=== PATIENT | female | born 1995 | race Caucasian/White ===

== ENCOUNTER 2017-12-25 10:32 | Emergency (ER) | payer SELFPAY ==
[2017-12-25 12:34] LABS: URINE BLOOD (Dip) POC Negative (NEGATIVE); URINE GLUCOSE (Dip) POC Negative (NEGATIVE); URINE KETONES (Dip) POC 2+ (NEGATIVE); URINE LEUKOCYTE EST (Dip) POC Trace (NEGATIVE); URINE NITRITE (Dip) POC Negative (NEGATIVE); URINE TOTAL PROTEIN POC 1+ (NEGATIVE)
== END 2017-12-25 13:31 | disposition home or self-care (01) ==
LOC: FTE 10:32
DX: O9A.211 Injury, poisoning and certain other consequences of external causes complicating pregnancy, first trimester (principal); S00.83XA Contusion of other part of head, initial encounter; S19.9XXA Unspecified injury of neck, initial encounter; R10.2 Pelvic and perineal pain; Y04.8XXA Assault by other bodily force, initial encounter
CPT/HCPCS: 76801; 76817; 81003; 81025; 99284-25